=== PATIENT | male | born 1975 | race Caucasian/White ===

== ENCOUNTER 2017-06-22 08:02 | Emergency (ER) | payer SELFPAY ==
[2017-06-22 09:15] VITALS: BP 130/90
--- NOTE | 2017-06-22 15:03 | UC ---
Kuldip Trimble Angela, scribed for Camden Wade MD on 06/22/17 at 1458 . Back Pain HPI - HPI Summary HPI Summary: This pt is a 42 y/o male presenting to [facility] c/o low back pain since yesterday pulling a pump from a pit. Pt reports not falling and not feeling a pop or snap. Pt reports his pain radiates to his buttocks but does not radiate to his legs. Pt denies urinary or bowel incontinence, urinary problems. He has been taking ibuprofen with no relief. - History of Current Complaint Chief Complaint: UCBackPain Stated Complaint: BACK INJURY Time Seen by Provider: 06/22/17 08:55 Hx Obtained From: Patient Onset/Duration: Gradual Onset Timing: Constant Back Pain: Is Discrete @ - low back Aggravating: Nothing Alleviating: Nothing Associated Signs And Symptoms: Negative: Swelling, Redness, Bruising, Fever, Weakness, Numbness, Abdominal Pain, Bladder Incontinence, Bowel Incontinence - Allergies/Home Medications Allergies/Adverse Reactions: Allergies Allergy/AdvReac Type Severity Reaction Status Date / Time No Known Allergies Allergy Verified 06/22/17 08:10 Home Medications: Home Medications Bp Med 50 mg PO DAILY 06/22/17 [History] PMH/Surg Hx/FS Hx/Imm Hx - Surgical History Surgical History: Yes Surgery Procedure, Year, and Place: mani right leg, hernia repair 8 yrs old - Social History Alcohol Use: Rare Substance Use Type: None Smoking Status (MU): Heavy Every Day Tobacco Smoker Type: Cigarettes Amount Used/How Often: 1 PPD Length of Time of Smoking/Using Tobacco: 20 YEARS Have You Smoked in the Last Year: Yes - Immunization History Most Recent Tetanus Shot: 2009 Review of Systems Constitutional: Negative Skin: Negative Eyes: Negative ENT: Negative Respiratory: Negative Cardiovascular: Negative Gastrointestinal: Negative Genitourinary: Negative Neurovascular: Negative Musculoskeletal: Other: - Low back pain Neurological: Negative Psychological: Negative All Other Systems Reviewed And Are Negative: Yes Physical Exam Triage Information Reviewed: Yes Vital Signs: Initial Vital Signs Temp 98.4 F 06/22/17 08:11 Pulse 71 06/22/17 08:11 Resp 18 06/22/17 08:11 BP 152/112 06/22/17 08:11 Pulse Ox 99 06/22/17 08:11 Vital Signs Reviewed: Yes - Additional Comments The patient is well-nourished in no acute distress and in no acute pain. The skin is warm and dry and skin color reflects adequate perfusion. HEENT: The head is normocephalic and atraumatic. The pupils are equal and reactive. The conjunctivae are clear and without drainage. Nares are patent and without drainage. Neck is supple with full range of motion and non-tender. There are no carotid bruits. There is no neck vein distension. Respiratory: Chest is non-tender. Lungs are clear to auscultation and breath sounds are symmetrical and equal. Cardiovascular: Hear is regular rate and rhythm. There is no murmur or rub auscultated. There is no peripheral edema and pulses are symmetrical and equal. Abdomen: The abdomen is soft and non-tender. There are normal bowel sounds heard in all four quadrants and there is no organomegaly palpated. Musculoskeletal: There is no back pain noted. Extremities are non-tender with full range of motion. There is good capillary refill. Muscle spasms on lumbar curvature, L1-L2. There is tenderness over the sacrum. Straight leg raise on both sides. Neurological: Patient is alert and oriented to person, place and time. The patient has symmetrical motor strength in all four extremities. Deep tendon reflexes are symmetrical and equal in all four extremities. Psychiatric: The patient has an appropriate affect and does not exhibit any anxiety or depression. Back Pain Course/Dx - Differential Dx/Diagnosis Differential Diagnosis/HQI/PQRI: Herniated Disc, Sprain Provider Diagnoses: Acute lumbosacral sprain and strain. Elevated blood pressure Discharge - Discharge Plan Condition: Stable Disposition: HOME Prescriptions: Cyclobenzaprine TAB* [Flexeril 10 MG TAB*] 10 mg PO TID PRN #30 tab PRN Reason: Pain HYDROcodone/ACETAMIN 5-325 MG* [[place] 5-325 TAB*] 1 tab PO Q6H PRN #20 tab MDD 4 PRN Reason: pain Patient Education Materials: Back Pain (ED), Low Back Strain (ED) Forms: *Work Release Referrals: No Primary Care Phys,NOPCP [Primary Care Provider] - Additional Instructions: Your blood pressure was elevated at this visit. Please follow up with your primary care provider for further evaluation. Continue to take ibuprofen 600 mg , 3 times a day. The documentation as recorded by the Kuldip velez Angela accurately reflects the service I personally performed and the decisions made by me, Camden Wade MD.
== END 2017-06-22 09:22 | disposition home or self-care (01) ==
LOC: UCEAST 08:02
DX: S33.9XXA Sprain of unspecified parts of lumbar spine and pelvis, initial encounter (principal); S39.012A Strain of muscle, fascia and tendon of lower back, initial encounter; X50.9XXA Other and unspecified overexertion or strenuous movements or postures, initial encounter; F17.210 Nicotine dependence, cigarettes, uncomplicated; R03.0 Elevated blood-pressure reading, without diagnosis of hypertension
CPT/HCPCS: 99212; G0463

== ENCOUNTER 2017-08-02 13:21 | Emergency (ER) | payer SELFPAY ==
[2017-08-02 13:28] VITALS: BP 136/81
== END 2017-08-02 14:38 | disposition left against medical advice (07) ==
LOC: ED 13:21
DX: Z77.098 Contact with and (suspected) exposure to other hazardous, chiefly nonmedicinal, chemicals (principal); Z53.21 Procedure and treatment not carried out due to patient leaving prior to being seen by health care provider